=== PATIENT | female | born 1940 | race American Indian/Alaskan Native ===

== ENCOUNTER 2024-05-26 15:34 | Outpatient (CLI) | payer MEDICARE, MEDICAID ==
[~2024-05-26 15:34] MED LIST: ASPI-974 PO; ATOR20TA PO; CEPH-572 PO; FOLI1TAB27 PO; HYDR25TA4 PO; LANTUS SQ; LISI20TA28 PO; LOP25T PO
== END 2024-05-26 23:59 | disposition home or self-care (01) ==
LOC: MRI 15:34
PROVIDERS: ATTEND Nurse Practitioner
DX: I67.82 Cerebral ischemia (principal); J34.89 Other specified disorders of nose and nasal sinuses; F02.A4 Dementia in other diseases classified elsewhere, mild, with anxiety
CPT/HCPCS: 70551

== ENCOUNTER 2025-06-01 18:40 | Inpatient (IN) | payer MEDICARE, MEDICAID ==
[~2025-06-01] VITALS: Ht 165.1 cm; Wt 69.9 kg
--- NOTE | 2025-06-01 18:58 | Physician Documentation ---
History of Present Illness ~ Stated Complaint: TRANSFER Time Seen by MD: 18:45 Primary Medical Doctor: BRENDA RUSSELL HPI Patient presents to the emergency room as a transfer from [facility] for sepsis of unknown origin with white blood cell count in the 20s, a cute kidney injury, hypotension and hyperglycemia. Patient has been having nausea and vomiting for several days. She denies any pain. Rocephin and vancomycin along with 2 L of IV fluids were administered. Patient does have a pacemaker that has running through her skin in the left but no significant signs of infection associated with this on physical exam. Medication Reconciliation Allergies: Coded Allergies: Sulfa (Sulfonamide Antibiotics) (Unverified Allergy, Unknown, 08/13/15) Scheduled Folic Acid* (Folic Acid*), 1 TABLET PO DAILY, (Reported) Discontinued Medications Aspirin (Aspirin), 1 TAB PO DAILY, (Reported) Discontinued Reason: patient no longer taking Atorvastatin Calcium (Lipitor), 1 TABLET PO DAILY, (Reported) Discontinued Reason: patient no longer taking Cephalexin (Keflex), 1 CAP PO Q8H Discontinued Reason: patient no longer taking Hydrochlorothiazide (Hydrochlorothiazide), 1 TABLET PO DAILY, (Reported) Discontinued Reason: patient no longer taking Insulin Glargine,Hum.rec.anlog (Lantus Solostar), 47 UNIT SQ HS, (Reported) Discontinued Reason: patient no longer taking Lisinopril (Lisinopril), 1 TAB PO DAILY, (Reported) Discontinued Reason: completed med therapy Metoprolol Tartrate* (Lopressor tablet*), 1 TAB PO Q12H, (Reported) Discontinued Reason: patient no longer taking Past Medical History Past Medical History: Hypertension, Diabetes Past Surgical History: no surgical history Alcohol Use: None Drug Use: none Lives with: Alone Review of Systems ROS All review of systems negative except as per HPI Physical Exam Physical Exam General: Patient is awake, alert, oriented x4 in no acute distress Head: Normocephalic and atraumatic. Eyes: Conjunctival normal. EOMI. PERRL. ENT: Mucous membranes moist. Neck: Supple, trachea is midline. Chest: Clear to auscultation bilaterally without rales, rhonchi, or wheezes. There is no accessory muscle use or retractions. Cardiac: RRR without murmurs, gallops, or rubs. Abd: Soft, nondistended, nontender, with normoactive bowel sounds. No guarding, rebound, or rigidity. Progress Results/Orders Results/Orders Orders - CONRADO CHAVEZ MD Urinalysis, Cult If Indicated (06/01/25 19:00) Culture Blood (06/01/25 19:26) Page Hospitalist (06/01/25 20:22) Fill Out Med Reconciliation (06/01/25 20:22) Ct Chest Abdomen Pelvis (06/01/25 20:47) Completed Orders - CONRADO CHAVEZ MD Electrocardiogram (06/01/25 19:00) Cbc/Diff (06/01/25 19:00) MG (06/01/25 19:00) Procalcitonin (06/01/25 19:00) Normal Saline 1000ml (0.9% Sodium Chlori (06/01/25 19:05) CMP (06/01/25 19:26) Lacticsepsis (06/01/25 19:26) Ct Chest Abdomen Pelvis (06/01/25 20:47) Iohexol 300mg/Ml 100ml Inj. (Omnipaque-3 (06/01/25 20:56) Medications Received in ER Medications (Trade) Dose Ordered Sig/Nery Route PRN Reason Start Time Stop Time Status Last Admin Dose Admin Sodium Chloride 1,000 ml @ 1,000 mls/hr ONCE ONCE IV 06/01/25 19:05 06/01/25 20:04 DC 06/01/25 19:46 1,000 MLS/HR Vital Signs 06/01/25 06/01/25 06/01/25 06/01/25 18:55 19:13 19:49 20:14 Temp 97.9 Pulse 84 89 91 Resp 16 16 16 16 B/P (MAP) 89/49 107/53 (71) 114/47 (69) Pulse Ox 96 97 97 Laboratory Tests Test 06/01/25 19:24 06/01/25 20:06 Glucometer 361 H White Blood Count 25.4 *H Red Blood Count 4.08 L Hemoglobin 12.7 Hematocrit 36.6 Mean Corpuscular Volume 89.6 Mean Corpuscular Hemoglobin 31.1 H Mean Corpuscular Hemoglobin Concent 34.7 Red Cell Distribution Width 13.3 Platelet Count 207 Mean Platelet Volume 8.2 Neutrophils (%) (Auto) 93.3 H Lymphocytes (%) (Auto) 2.3 L Monocytes (%) (Auto) 3.9 Eosinophils (%) (Auto) 0 Basophils (%) (Auto) 0.5 Neutrophils # (Auto) 23.7 H Lymphocytes # (Auto) 0.6 L Monocytes # (Auto) 1.0 H Eosinophils # (Auto) 0.0 Basophils # (Auto) 0.1 CBC Comment Sodium Level 129 L Potassium Level 3.4 L Chloride Level 97 L Carbon Dioxide Level 20.3 L Anion Gap 12 Blood Urea Nitrogen 21 H Creatinine 1.23 H Estimated GFR/1.73 m2 42 BUN/Creatinine Ratio 17.1 Glucose Level 370 H Lactic Acid Level 3.7 H Calcium Level 8.0 L Magnesium Level 1.9 Total Bilirubin 0.6 Aspartate Amino Transf (AST/SGOT) 17 Alanine Aminotransferase (ALT/SGPT) 10 L Alkaline Phosphatase 78 Total Protein 5.9 L Albumin 2.6 L Globulin 3.3 Albumin/Globulin Ratio 0.8 L Procalcitonin 10.88 H Chemistry Comments Medical Decision Making Findings Patient presents to the emergency room sent from [facility] with hypotension on Levophed. Differentials include but are not limited to dehydration, severe sepsis, medication side effect therefore repeat labs ordered confirming diagnosis of sepsis. Patient is septic although we are unable to find the source of infection therefore CT scan of chest abdomen and pelvis ordered. Additional fluids ordered and patient has been weaned off of Levophed. IV antibiotics have already been administered. Departure Admitted to Inpatient Unit: yes, to hospitalist Impression: Primary Impression: Sepsis Additional Impressions: Hypotension Dehydration Condition: Guarded Referrals: NO PRIMARY CARE PROVIDER (PCP) Critical Care Note Total Time (mins): 45 Critical Care Note The very real possibility of a deterioration of this patient's condition required the highest level of my preparedness for sudden, emergent intervention. I provided critical care services, which included medication orders, frequent reevaluations of the patient's condition and response to treatment, ordering and reviewing test results, and discussing the case with various consultants. Excludes time spent performing separately billable procedures. The critical care time associated with the care of the patient was 45 minutes not counting procedures Signature Scribe Signature: No scribe Attestation: The note accurately reflects work and decisions made by me.Conrado Chavez MD 06/01/25 21:25 CONRADO CHAVEZ MD Jun 01, 2025 18:58
--- NOTE | 2025-06-01 19:15 | ELECTROCARDIOGRAPH REPORT ---
[facility] Test Date: 2025-06-01 Test Time: 19:14:10 Pat Name: ZOYA OLSEN Department: EMERGENCY ROOM Room: Gender: F Multifocal Lens Inspector: DONATO : 1940 Requested By: VIRGINIE DEWITT Order Number: [id number] Reading MD: Measurements Intervals Mico Rate: 82 P: 87 DC: 129 QRS: -49 QRSD: 152 T: 129 QT: 465 QTc: 543 Interpretive Statements Atrial-sensed ventricular-paced rhythm No further analysis attempted due to paced rhythm Please click the below link to view image of tracing.
[2025-06-01] MEDS: normal saline 1000ml 1,000 ML IV ONE (19:46)
[2025-06-01 20:27] LABS: MEAN PLATELET VOLUME 8.2 FL (7.4-10.4); RED CELL DISTRIBUTION WIDTH 13.3 % (11.5-14.5)
[2025-06-01 20:32] LABS: CREATININE 1.23 MG/DL (0.40-0.90); TOTAL CARBON DIOXIDE 20.3 MMOL/L (24-32); eCRCL 31 ML/MIN; eGFR 42 ML/MIN
[2025-06-01] MEDS ORDERED: iohexol 300mg/ml 100ml inj. ONE (20:56)
[2025-06-01] MEDS ORDERED: CARV6.252 PO (21:29)
[2025-06-01] MEDS ORDERED: LOSA100T58 PO (21:29)
[2025-06-01] MEDS ORDERED: ATOR10TA70 PO (21:29)
[2025-06-01] MEDS ORDERED: AMLO10TA PO (21:29)
[2025-06-01] MEDS ORDERED: GLIP5TAB23 PO (21:29)
[2025-06-01] MEDS ORDERED: DAPA10TA7 (21:29)
[2025-06-01] MEDS ORDERED: OXYC5CAP22 PO (21:29)
[2025-06-01] MEDS ORDERED: FURO-150 PO (21:29)
[2025-06-01] MEDS ORDERED: CHOL100046 PO (21:29)
[2025-06-01] MEDS ORDERED: ASPI-1265 PO (21:29)
[2025-06-01] MEDS ORDERED: METF-438 PO (21:29)
[2025-06-01] MEDS ORDERED: LEFL10TA20 PO (21:29)
--- NOTE | 2025-06-01 21:48 | RADIOLOGY REPORT ---
CLINICAL HISTORY: infection TECHNIQUE: CT of the chest, abdomen, and pelvis was performed with IV contrast. Coronal and sagittal reformatted images were performed for better depression of the anatomy. This exam was performed acco rding to our departmental dose optimization program. Up-to-date CT equipment and radiation dose reduc tion techniques are utilized as appropriate. CTDI 23.8 DLP 1329 COMPARISON: None FINDINGS: CHEST: The thoracic aorta is normal in course and caliber. There are moderate the main pulmonary artery is d ilated measuring 3.3 cm. Atherosclerotic calcifications. The heart is normal in size. There are midline denomy wires. There are extensive squaxin 3 vessel miranda nary artery calcifications. Aortic valvular calcifications are present there is a left chest wall pa cing device. ng device. No pericardial effusion is seen. No enlarged mediastinal, hilar, or axillary lymph node is present. The central airways are patent. There is no bronchiectasis. There is no suspicious pulmonary nodule or area of consolidation. There are mild atelectatic changes of both lung bases. There is no pleural effusion present. There is a small hiatal hernia. ABDOMEN/PELVIS: The spleen, gallbladder, kidneys, liver, uterus, and bladder are unremarkable. The moderate pancreatic parenchymal atrophy with no ductal dilatation. There is mild bilateral nonspe cific adrenal thickening. The common duct is borderline dilated, measuring 9 mm. The abdominal aorta is normal in course and caliber. There are moderate to advanced atherosclerotic c alcifications. There is no free intraperitoneal air or fluid. There is no enlarged abdominal or pelvic lymph node. There is no small or large bowel wall thickening or dilatation. There is gastric mural edema. Produce body wall edema. BONES: No acute osseous abnormality is evident. IMPRESSION: No acute CT abnormality in the chest. Gastritis. Borderline dilated 9 mm common duct. Please correlate with laboratory values and pursue further work up if warranted. Diffuse body wall edema.
[2025-06-01] MEDS ORDERED: magnesium Cl slow-release 64mg tablet PO PRN (21:55)
[2025-06-01] MEDS ORDERED: magnesium hydroxide 30ml (MOM) UD suspension PO PRN (21:55)
[2025-06-01] MEDS ORDERED: mag hydrox/Alum hydrox/simeth 30ml oral suspension PO PRN (21:55)
[2025-06-01] MEDS ORDERED: magnesium sulf-water 4G/100mL 100 ML IV PRN (21:55)
[2025-06-01] MEDS ORDERED: potassium Cl 40MEQ/1/2NS 520ml 520 ML IV PRN (21:55)
[2025-06-01] MEDS ORDERED: magnesium sulf-water 2g/50mL 50 ML IV PRN (21:55)
[2025-06-01] MEDS ORDERED: ondansetron/PF 4mg/2ml inj IV PRN (21:55)
[2025-06-01 22:33] LABS: CHOL/HDL RATIO 1.8 (0.00-4.99); LDL CHOLESTEROL 24 MG/DL (50-100)
[2025-06-01] MEDS ORDERED: DEXTROSE 15 GM of carb/4 tabs (each vial/BOTTLE has 4 tablets) PO PRN ×2 (23:00)
[2025-06-01] MEDS ORDERED: glucagon, human recombinant 1mg kit SUBCUT PRN (23:00)
[2025-06-01] MEDS ORDERED: dextrose 50%-water 50ml dispensing syringe IV PRN ×2 (23:00)
[2025-06-01] MEDS: ringers solution, lacted 1,000 ML IV ONE (23:41)
[2025-06-01 23:43] LABS: BANDS% (MANUAL) 33.0 % (0-10); EOSINOPHILS % (MANUAL) 2.0 % (0-6); LYMPHOCYTES % (MANUAL) 2.0 % (21-51); MONOCYTES % (MANUAL) 5.0 % (2-12); NEUTROPHILS % (MANUAL) 58.0 % (42-75); PLATELET ESTIMATE NORMAL
[2025-06-01] MEDS: insulin regular, human 10 units/0.1 ml syringe SQ ONE (23:43)
[2025-06-02] VITALS (8 sets, daily range): BP systolic 87–120; BP diastolic 41–59; PULSE 77–85; RESP 12–18; TEMP 97–97.6; O2SAT 92–98
[2025-06-02] MEDS: VANCOMYCIN/H2O 1.5g/300mL PB 300 ML IV ONE ×2 (00:39→00:46)
[2025-06-02] MEDS: piperacillin/tazo 3.375gm/50ml 50 ML IV SCH (00:39)
[2025-06-02 01:07] LABS: CREATININE 1.21 MG/DL (0.40-0.90); TOTAL CARBON DIOXIDE 18.9 MMOL/L (24-32); eCRCL 32 ML/MIN; eGFR 42 ML/MIN
--- NOTE | 2025-06-02 01:08 | HISTORY AND PHYSICAL-Residence ---
History & Physical Providers to CC Resident Creating Document: INDER BANKS, TRISTAN ~ History of Present Illness Primary Medical Doctor: BRENDA RUSSELL Reason for Admit\Complaint: generalised tiredness History of Present Illness This is a 85-year-old know case of diabetes presents to the emergency room as a transfer from [facility] for hypotension,When she came to [facility] his blood pressure was 89/49 and was on levofit drip, which was stopped here and she received 2L of fluid at [facility] ER, patient blood pressure went upto better however his blood pressure is currently on lower side around 90z/40z.Patient went to [facility] for chills and nausea. Patient has very very hard time in hearing i could not take her history further. Allergies: Coded Allergies: Sulfa (Sulfonamide Antibiotics) (Unverified Allergy, Unknown, 08/13/15) Home Medications Home Medications Active Reported Oxycodone HCl 5 Mg Capsule 1 Cap PO QID PRN PRN 30 Days Metformin HCl 1,000 Mg Tablet 1 Tab PO Q12H 30 Days Losartan Potassium 100 Mg Tablet 1 Tab PO DAILY 30 Days Leflunomide 10 Mg Tablet 1 Tab PO DAILY 30 Days Glipizide 5 Mg Tablet 1 Tab PO DAILY 30 Days Lasix (Furosemide) 20 Mg Tablet 1 Tab PO DAILY 30 Days Dapagliflozin (Dapagliflozin Propanediol) 10 Mg Tablet Vitamin D3 (Cholecalciferol (Vitamin D3)) 25 Mcg (1000 Unit) Capsule 1 Cap PO DAILY 30 Days Carvedilol 6.25 Mg Tablet 1 Tab PO Q12H 30 Days Atorvastatin Calcium 10 Mg Tablet 1 Tab PO DAILY 30 Days Aspirin 81 Mg Tab.chew 1 Tab PO DAILY 30 Days Amlodipine Besylate 10 Mg Tablet 1 Tablet PO DAILY Folic Acid* (Folic Acid) 1 Mg Tablet 1 Tablet PO DAILY Past Medical History Past Medical History Diabetes Mellitus Patient had very hard time in hearing so i could not take her social history. Past Surgical History Surgical History Comment Patient had very hard time in hearing so i could not take her social history. Past Social History Social History Comment Patient had very hard time in hearing so i could not take her social history. Drug Use: None Lives with: Alone ROS Constitutional: Reports: chills Exam Vitals: Vital Signs Date Time Temp Pulse Resp B/P (MAP) Pulse Ox O2 Delivery O2 Flow Rate FiO2 06/01/25 23:47 80 16 121/59 (79) 96 8/21/25 18:55 97.9 General: General: awake, alert oriented to place, time, and person HEENT: No pallor present, no icterus, moist mucous membranes, Diffculty in hearing Neck: No masses and tenderness Resp: Unlabored. Lungs clear to auscultation bilaterally. Chest: Normal expansion. Cardiovascular: Regular Rate and rhythm, normal S1 and S2 without murmur, rub or gallop Abdomen: Soft and non tender in epigastrium, no organomegaly, no guarding and rigidity, bowel sounds present Neuro: No focal weakness in the upper and lower limb muscles, power of the muscles 5/5 bilateral upper and lower extremities, normal reflexes bilaterally. Cranial nerves intact Extremities: No cyanosis,clubbing or edema Skin: Warm and Dry. No lesions Psych: Normal affect Diagnostic Data Last Recorded Lab Results: 06/01/25200506/01/252005 Advance Care Planning Advanced Care plannin - 30 Minutes (I spent 17 minutes in discussing various resuscitative measures with patient and he choose to be full code.) Additional Plan This is a 85-year-old know case of diabetes presents to the emergency room as a transfer from [facility] for hypotension,When she came to [facility] his blood pressure was 89/49 and was on levofit drip, which was stopped here and she received 2L of fluid at [facility] ER, patient blood pressure went upto better however his blood pressure is currently on lower side around 90z/40z.Patient went to [facility] for chills and nausea. Patient has very very hard time in hearing i could not take her history further. Septic Shock/Sepsis/Infection of Unknown Origin SIRS Criteria met Wbc: 25.4 Lactic acid 2.5 BP: 96/46, MAP 63 Patient transfered from [facility] on Levophed ER Discontinued Levophed started on fluids. Started on vancomycin and zoysn Received around 5L of Fluids Follow up with Urine Culture, Blood Culture Ct scan abd pelvis: Does not show signs of acute infection Consult ICU if patient does not maintain BP. Type 2 Diabetes Mellitus Hb1Ac: 11.6 Glucose: 290 Started hyperglycemia/hypoglycemia protocol, lantus 10, lispro 8 units and high dose supplemental She also received one single dose of lantus 10 units. Held oral home medications for diabetes Follow up with blood gluocse and Urine Ketone Monitor signs for DKA Hyponatremia NA is 129 Urine lytes ordered to find out etiology for hyponatremia Follow up with urine and serum osmolality Monitor for signs and symptoms of hyponatremia Hypokalemia K is 3.0 Placed on K protocol. Acute Kidney Injury Metabolic acidosis Creatinine 1.21 Follow up with urine lytes Patient Received fluids Dvt Prophylaxis: Heparin Patient seen and evaluated with the resident using HIPPA compliant AV Device Sepsis but responded to fluid resuscitation, source possible from pacemaker site Agree with plans as outlined above, If MAP becomes less than 65 persistently then transfer to ICU for pressor support ID and cardiology consult Susy Pavon MD Date of Service: Jun 02, 2025 Billing Provider: SUSY PAVON MD, SANJAY, RES Jun 02, 2025 01:08 SUSY PAVON MD Jun 02, 2025 03:58
[2025-06-02] MEDS: PERFLUTREN PROTEIN-A MICROSPHR (Optison) 0.22 MG/ML 3ML VIAL IV ONE (02:18)
[2025-06-02] MEDS: potassium Cl 20 mEq SR tablet PO PRN ×2 (02:22→12:29)
[2025-06-02 02:26] LABS: LEUKOCYTE ESTERASE ,URINE NEGATIVE (Neg); NITRITES, URINE NEGATIVE (Neg); OCCULT BLOOD,URINE NEGATIVE (Neg)
[2025-06-02 02:27] LABS: UA COLLECTION TYPE CLN CATCH MIDSTREAM
[2025-06-02 02:39] LABS: SQUAMOUS EPITHELIAL CELL,UR MODERATE /LPF (FEW)
[2025-06-02 02:46] LABS: CREATININE,URINE RANDOM 56.0 MG/DL; TOTAL PROTEIN,URINE RANDOM 30.0 MG/DL; UA UREA RANDOM 434.0 MG/DL
[2025-06-02 02:47] LABS: URINE AMPHETAMINE SCREEN NEGATIVE (Neg); URINE BARBITUATE SCREEN NEGATIVE (Neg); URINE BENZODIAZEPINES SCREEN NEGATIVE (Neg); URINE CANNABINOID SCREEN NEGATIVE (Neg); URINE COCAINE SCREEN NEGATIVE (Neg); URINE METHADONE SCREEN NEGATIVE (Neg); URINE OPIATE SCREEN NEGATIVE (Neg); URINE PHENCYCLIDINE SCREEN NEGATIVE (Neg)
[2025-06-02] MEDS: INSULIN LISPRO 100 UNIT/ML INSULN.PEN MULTI-DOSE SQ SCH ×2 (07:00→09:00)
[2025-06-02 07:43] LABS: MEAN PLATELET VOLUME 8.8 FL (7.4-10.4); RED CELL DISTRIBUTION WIDTH 13.3 % (11.5-14.5)
[2025-06-02] MEDS: docusate sod 100mg capsule PO SCH (07:54)
[2025-06-02] MEDS: sodium bicarbonate 1meq/ml inj 150 ML in sodium chloride 0.45% 1,000 ML IV SCH (07:55)
[2025-06-02 07:56] LABS: APTT 33 SECONDS (22-32); INR 1.2 INR
[2025-06-02] MEDS: heparin, porcine 5000 units/ml vial SQ SCH (07:57)
[2025-06-02 08:00] LABS: CREATININE 1.15 MG/DL (0.40-0.90); TOTAL CARBON DIOXIDE 19.8 MMOL/L (24-32); eCRCL 33 ML/MIN; eGFR 45 ML/MIN
[2025-06-02] MEDS: K and/or MAG REPLACEMENT MC SCH (08:00)
[2025-06-02 08:11] LABS: CREATININE 1.15 MG/DL (0.40-0.90); PHOSPHORUS 2.2 MG/DL (2.3-4.5); TOTAL CARBON DIOXIDE 21.3 MMOL/L (24-32); eCRCL 33 ML/MIN; eGFR 45 ML/MIN
[2025-06-02] MEDS: normal saline 1000ml 1,000 ML IV SCH (08:54)
[2025-06-02] MEDS: normal saline 1000ml 1,000 ML IVB ONE (10:11)
[2025-06-02] MEDS: sodium bicarbonate (8.4%) inj. 100 MEQ in dextrose 5%-water 1,000 ML IV SCH (11:19)
--- NOTE | 2025-06-02 19:43 | CARDIOLOGY REPORT ---
APPROVED REPORT EXAM: Comprehensive 2D, Doppler, and color-flow Echocardiogram. Patient Location: 301 Blood Pressure: 95/42 mmHg Heart Rate: 99 bpm Rhythm: NSR Indications CHF Pacemaker Diabetes Photoengraving Proofer is Avelina Morris MD Previous echo 08/14/15 [facility] 40% EF ; m MR TR 2D Dimensions LA Diam3.6 cm IVSd 1.0 (0.7-1.1cm) LVDd 4.4 cm PWd 1.0 (0.7-1.1cm) IVSs 1.7 (0.8-1.2cm) LVDs 3.1 (2.5-4.0cm) Aortic Root(2D) 2.9 cm PWs 1.4 (0.8-1.2cm) LVOT Diameter 1.92 (1.8-2.4cm) LVEF(%) 65.0 (>50%) Ao Asc Diam.2.56 cmIVC 18.44 mm FS (%) 29.3 % SV 49.3 ml CO 3.7 L/min M-Mode Dimensions MV EPSS 0.5 (<0.5cm) Aortic Valve AoV Peak Miguel. 171.1 cm/s AoV VTI 32.9 cm AO Peak GR. 11.7 mmHg AO Mean GR. 7 mmHg LVOT VTI 25.17 cm LVOT Peak Miguel. 111.3 cm/s MADAY(VTI)/BSA 2.22 cm2/m2 MADAY (VTI) 2.22 cm2 Mitral Valve MV E Velocity 76.8 cm/s MV Peak Gr. 3 mmHg MV DECEL TIME 248 ms MV A Velocity 70.8 cm/s MV PHT 56 ms E/A Ratio 1.1 MVA (PHT) 3.93 cm2 MV VMax87.4 cm/s TDI Medial E' P. V 11.92 cm/s E/Medial E' 6.4 Tricuspid Valve TR P. Velocity 285 cm/s RAP ESTIMATE 10 mmHg TR Peak Gr. 32 mmHg RVSP 42 mmHg Pulmonary Vein S1 Velocity 53.6 cm/s D2 Velocity 46.0 cm/s PVa Kvabdpey99.6 cm/s PVa Lrubgges55 msec LEFT VENTRICLE Normal LV size and wall thickness. Overall systolic function is hyperdynamic. LVEF is 75%. RIGHT VENTRICLE RV appears moderately dilated with normal contractility. Pacemaker wire in right heart. RVSP is estim ated at 42 mmHG. ATRIA The left atrium size is normal. AORTIC VALVE Trileaflet AV appears sclerotic without stenosis. No insufficiency. MITRAL VALVE MV is thickened with mild annular calcification and no stenosis. Trace mitral regurgitation. TRICUSPID VALVE The tricuspid valve is normal in structure. Moderate tricuspid regurgitation. PULMONIC VALVE The pulmonary valve is normal in structure. Trace pulmonic regurgitation. GREAT VESSELS The aortic root is normal in size. The ascending aorta is normal in size. The IVC is normal in size a nd collapses >50% with inspiration. PERICARDIUM There is no pericardial effusion. Other Information Study Quality: Adequate Conclusion Normal LV size and wall thickness. Overall systolic function is hyperdynamic. LVEF is 75%. RV appears moderately dilated with normal contractility. Pacemaker wire in right heart. RVSP is estim ated at 42 mmHG. The left atrium size is normal. Trileaflet AV appears sclerotic without stenosis. No insufficiency. MV is thickened with mild annular calcification and no stenosis. Trace mitral regurgitation. The tricuspid valve is normal in structure. Moderate tricuspid regurgitation. The pulmonary valve is normal in structure. Trace pulmonic regurgitation. There is no pericardial effusion.
[2025-06-02] MEDS: insulin glargine (Lantus) pen - multi-dose SQ SCH (20:57)
--- NOTE | 2025-06-02 21:21 | PROGRESS NOTE ---
Daily Progress Note Providers to CC ~ Antibiotic Timeout Antibiotic Ordered?: Yes Subjective The patient is significantly hard of hearing however was able to converse with the patient she has no acute complaints even though she has been very hypotensive this morning and a has a give the patient two separate 1 L boluses of normal saline. I discussed the case with who had placed the AICD in 2016 who has a agreed to consult on the patient and informed me he will contact Dr. Melendez cement mixer and infectious disease physician Dr. Jose mendoza Objective Vital Signs Date Time Temp Pulse Resp B/P (MAP) Pulse Ox O2 Delivery O2 Flow Rate FiO2 06/02/25 15:00 97.5 79 14 118/46 (70) 94 Room Air 06/02/25 02:00 0 21 Result Diagram: 06/02/25 0710 06/02/25 0710 Gen. No acute distress alert and oriented 4 Skin dressing is in place left chest wall Lungs clear to ascultation bilaterally, no wheezes rales or rhonchi appreciated Heart normal sinus rhythm no murmurs rubs or clicks noted Abdomen soft nontender bowel sounds are normoactive Lower extremities no clubbing cyanosis, nor edema appreciated bilaterally Coagulation Studies Laboratory Tests Test 06/02/25 07:10 Prothrombin Time 11.9 SECONDS (9.0-12.0) INR International Normalized Ratio 1.2 INR Activated Partial Thromboplast Time 33 SECONDS (22-32) H Coagulation Comments Problem\Assessment\Plan # septic shock/sepsis Wbc: 25.4 Lactic acid 2.5 BP: 96/46, MAP 63 Patient transfered from [facility] on Levophed ER Discontinued Levophed started on fluids. Started on vancomycin and zoysn Received around 5L of Fluids Follow up with Urine Culture, Blood Culture Ct scan abd pelvis: Does not show signs of acute infection 06/02 drainage from the pacemaker site initial culture from [facility] demonstrates Gram-positive cocci as well as the initial blood cultures I discussed the case with who had placed the AICD in 2016 who has a agreed to consult on the patient and informed me he will contact Dr. Melendez cement mixer and infectious disease physician Dr. Jose mendoza The patient required 2 L of IV fluid normal saline boluses Continue IV vancomycin and Zosyn # type 2 diabetes mellitus and a hyper and hypoglycemic protocol # metabolic acidosis Bicarb drip # hypokalemia On potassium replacement protocol # hyponatremia Improving continue monitor daily CMP # kidney disease-eval for LINCOLN Daily CMP Currently does not meet the criteria for LINCOLN # DVT prophylaxis SQ heparin I spent 40 minutes of critical care time with the patient on 06/02/2025 Date of Service: Jun 02, 2025 Billing Provider: LUCY HERNANDEZ DO Common Visit Codes: [id number] CARE 30-74 MIN LUCY HERNANDEZ DO Jun 02, 2025 21:21
[2025-06-02] MEDS ORDERED: VANCOMYCIN 1GM 200ML H20 (PEG) 200 ML IV SCH (23:00)
[2025-06-02] MEDS ORDERED: vancomycin/NS 1 GM ADD-VANTAGE 250 ML IV SCH (23:00)
[2025-06-03] VITALS (9 sets, daily range): BP systolic 100–160; BP diastolic 59–71; PULSE 74–85; RESP 13–22; TEMP 97–97.9; O2SAT 96–99
[2025-06-03] MEDS: vancomycin inj. 750 MG in normal saline 250ml IV soln 250 ML IV SCH (01:23)
[2025-06-03 08:03] LABS: MEAN PLATELET VOLUME 8.5 FL (7.4-10.4); RED CELL DISTRIBUTION WIDTH 13.3 % (11.5-14.5)
[2025-06-03 08:19] LABS: APTT 36 SECONDS (22-32); INR 1.0 INR
[2025-06-03 08:53] LABS: CREATININE 0.94 MG/DL (0.40-0.90); PHOSPHORUS 1.4 MG/DL (2.3-4.5); TOTAL CARBON DIOXIDE 22.2 MMOL/L (24-32); eCRCL 41 ML/MIN; eGFR 57 ML/MIN
--- NOTE | 2025-06-03 12:21 | CONSULTATION ---
DATE OF CONSULTATION: 06/03/2025 DICTATING PHYSICIAN: Jose Liao MD REASON FOR CONSULTATION: I am seeing the patient at the request of Dr. Farias for evaluation of a pacemaker pocket infection with bacteremia. HISTORY OF PRESENT ILLNESS: The patient is an 85-year-old female who lives up in [place] and apparently presented to [facility] with sepsis. She had an elevated white blood cell count along with hypotension. She had been experiencing nausea and vomiting. She was resuscitated with IV fluids and she did have a mild acute kidney injury that appears to be improving. Blood cultures have since turned positive for gram-positive cocci in clusters. She has been broadly covered with vancomycin and Zosyn. It quickly became apparent that she has an exposed defibrillator at her left chest. She is unclear how long that wound has been present, but the device was clearly visible. She states that she lives on her own. She does not have any significant pain anywhere. Her breathing is stable. She is hard of hearing, but she does not seem to be confused. Dr. Farias was consulted for removal of the device and I believe he is consulting with Dr. Melendez. She has not had any focal neurological symptoms. No significant fever. PAST MEDICAL HISTORY: * Diabetes mellitus type 2 that appears to be uncontrolled with a hemoglobin A1c of 11.6%. * Hypertension. * Dyslipidemia. * Rheumatoid arthritis. * Hearing loss. * Suspected coronary artery disease. PAST SURGICAL HISTORY: * She does have a biventricular AICD that was put in back in [address] Farias here at [facility]. She states that she had cardiac surgery over at [facility] several years ago and I will try to get more details. * Appendectomy. * Carpal tunnel surgery. ALLERGIES: SULFA. MEDICATIONS: * Vancomycin. * Zosyn. * Insulin glargine. * Humalog. * Subcutaneous heparin. * Folate. * Atorvastatin. * Aspirin. * Colace. FAMILY HISTORY: Noncontributory. SOCIAL HISTORY: She states that she lives alone in [place]. She is a member of the [employer]. She does not drink or smoke. PHYSICAL EXAMINATION: VITAL SIGNS: She is afebrile with stable vital signs on room air. GENERAL: She is a very pleasant, elderly female sitting up in bed, eating her breakfast. HEENT: Sclerae anicteric. Mouth is clear. NECK: Supple. LUNGS: Clear to auscultation bilaterally. HEART: Regular rate and rhythm. CHEST: She does have a small open wound at the left anterior chest and her AICD is easily visualized. She does not have significant surrounding erythema. ABDOMEN: Soft, nontender, and nondistended. EXTREMITIES: No edema. NEUROLOGICALLY: She is moving all four extremities. LABORATORY DATA AND IMAGING: Her white blood cell count is 13,000, down from 25,000; hemoglobin 11.6; platelets 191,000. Creatinine 0.94. Blood cultures are positive for gram-positive cocci in clusters. MRSA nasal screen is positive. She did have a transthoracic echo that shows a normal ejection fraction. Aortic valve was sclerotic without any insufficiency. Mitral valve is thickened with mild annular calcification, but no stenosis or significant regurgitation. Tricuspid valve is normal with moderate regurgitation. There was no clear evidence of endocarditis. CT scan of the chest, abdomen, and pelvis was performed that was largely unremarkable. MRI of the brain was also unremarkable. IMPRESSION: * Staphylococcal sepsis, suspicious for methicillin-resistant Staphylococcus aureus given her positive screen. She is clinically stable at this time after presenting with sepsis at an outside hospital. Source appears to be her automatic implantable cardioverter-defibrillator pocket. It is unclear how long that wound has been present. She will likely move forward with treatment for presumed endocarditis given the circumstances. 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 I believe Dr. Farias is working with Dr. Melendez to plan removal of this device. * Diabetes mellitus type 2 that is uncontrolled. * Rheumatoid arthritis, possibly on immunosuppressive therapy. Looking at past notes, she has been on a variety of therapies in the past including infliximab and methotrexate. Her current medication list suggests that she is on leflunomide. Treatment for this condition will need to be clarified. PLAN: She will continue with vancomycin. Zosyn will be discontinued. I am going to repeat her blood cultures. I will await the plan from Dr. Farias and Dr. Melendez. We will sort out a duration of therapy once her device has been removed and her bloodstream has been cleared. Further adjustments will be based on susceptibilities. At the present time, she does not demonstrate evidence of metastatic infection. I will continue to follow her closely, and I thank you for allowing me to participate in her care. 75 minutes time spent [id number], review of medical record including labs/cultures/imaging, orders and documentation. Jose Liao MD TID: [id number] RECEIPT: [id number] DOMINICK/JACINTO MORENO
--- NOTE | 2025-06-03 21:55 | PROGRESS NOTE ---
Daily Progress Note Providers to CC ~ Antibiotic Timeout Antibiotic Ordered?: Yes Subjective The patient states that she feels well has no acute complaints, the patient is white blood cell count is downtrending and her blood pressure stabilized I did speak with Dr. Melendez for lead extraction who will evaluate the patient- the patient's AICD was interrogated and the patient is not pacemaker dependent. Dr. Jose mendoza infectious disease evaluated the patient today discontinue Zosyn Objective Vital Signs Date Time Temp Pulse Resp B/P (MAP) Pulse Ox O2 Delivery O2 Flow Rate FiO2 06/03/25 18:30 83 06/03/25 15:00 97.1 20 130/60 (83) 98 Room Air 06/02/25 02:00 0 21 Result Diagram: 06/03/25 0740 06/03/25 0740 Gen. No acute distress alert and oriented 4 Skin dressing is in place left chest wall Lungs clear to ascultation bilaterally, no wheezes rales or rhonchi appreciated Heart normal sinus rhythm no murmurs rubs or clicks noted Abdomen soft nontender bowel sounds are normoactive Lower extremities no clubbing cyanosis, nor edema appreciated bilaterally Coagulation Studies Laboratory Tests Test 06/03/25 07:40 Prothrombin Time 10.1 SECONDS (9.0-12.0) INR International Normalized Ratio 1.0 INR Activated Partial Thromboplast Time 36 SECONDS (22-32) H Coagulation Comments Problem\Assessment\Plan # septic shock/sepsis Wbc: 25.4 Lactic acid 2.5 BP: 96/46, MAP 63 Patient transfered from [facility] on Levophed ER Discontinued Levophed started on fluids. Started on vancomycin and zoysn Received around 5L of Fluids Follow up with Urine Culture, Blood Culture Ct scan abd pelvis: Does not show signs of acute infection 06/02 drainage from the pacemaker site initial culture from [facility] demonstrates Gram-positive cocci as well as the initial blood cultures I discussed the case with who had placed the AICD in 2017 who has a agreed to consult on the patient and informed me he will contact Dr. Melendez geographic information systems engineer and infectious disease physician Dr. Jose mendoza The patient required 2 L of IV fluid normal saline boluses Continue IV vancomycin and Zosyn 06/03 Dr. Jose mendoza a evaluated the patient and discontinue Zosyn, Dr. Melendez geographic information systems engineer has been consulted and will evaluate the patient for lead extraction # type 2 diabetes mellitus and a hyper and hypoglycemic protocol # metabolic acidosis Bicarb drip 06/03 improving # hypokalemia On potassium replacement protocol # hyponatremia Improving continue monitor daily CMP # kidney disease-eval for LINCOLN Daily CMP Currently does not meet the criteria for LINCOLN # DVT prophylaxis SQ heparin I spent 40 minutes of critical care time with the patient on 06/02/2025 Date of Service: Jun 03, 2025 Billing Provider: LCUY HERNANDEZ DO Common Visit Codes: [id number] INP/OBS CARE(HIGH) LUCY HERNANDEZ DO Jun 03, 2025 21:55
[2025-06-03] MEDS: sodium phosphate inj. 15 MMOL in normal saline 250ml IV soln 250 ML IV ONE (22:34)
[2025-06-04 02:00] VITALS: BP 145/65; PULSE 86; RESP 16; TEMP 97.9; O2SAT 97
[2025-06-04] MEDS: magnesium sulf-water 2g/50mL 50 ML IV ONE (05:31)
[2025-06-04 06:00] VITALS: BP 133/68; PULSE 80; RESP 21; TEMP 98.6; O2SAT 96
[2025-06-04 06:44] LABS: APTT 37 SECONDS (22-32); INR 1.0 INR
[2025-06-04 07:05] LABS: CREATININE 0.80 MG/DL (0.40-0.90); PHOSPHORUS 1.7 MG/DL (2.3-4.5); TOTAL CARBON DIOXIDE 25.7 MMOL/L (24-32); eCRCL 48 ML/MIN; eGFR 69 ML/MIN
[2025-06-04 07:30] LABS: MEAN PLATELET VOLUME 8.7 FL (7.4-10.4); RED CELL DISTRIBUTION WIDTH 13.3 % (11.5-14.5)
--- NOTE | 2025-06-04 10:28 | PROGRESS NOTE ---
Progress Note Cardiology Providers to CC ~ Subjective Subjective Does not hear. Left hearing aid at home. Objective Result Diagram: 06/04/25 0550 06/04/25 0550 Objective Problems at pulse generator site noted Coagulation Studies Laboratory Tests Test 06/04/25 05:50 Prothrombin Time 10.4 SECONDS (9.0-12.0) INR International Normalized Ratio 1.0 INR Activated Partial Thromboplast Time 37 SECONDS (22-32) H Coagulation Comments Problem\Assessment\Plan Additional Plan Problem: ICD packet infection with erosion secondary to seeding from stapgh aureus. Sepsis is defervesced and pt stable on vancomycin. I cannot do an extraction until at which time MD ANGELITO, CT surgeon is back on site. I do not have confidence in any of the other surgeons for adequate back-up. The patient could go home on outpatient [facility] or she could be transferred to [facility]. I am very willing to do the extraction but only with safe, expedient CT support. If she goes home and comes back, SHE MUST HAVE HER HEARING AID. I will see her as an oupatient if she stays locally but SHE MUST BRING HER HEARING AID. ANGY ROMANO DO Jun 04, 2025 10:28
[2025-06-04 11:00] VITALS: BP 111/61; PULSE 92; RESP 22; TEMP 98.1; O2SAT 95
[2025-06-04 15:00] VITALS: BP 134/67; PULSE 76; RESP 26; TEMP 97; O2SAT 96
[2025-06-04 18:00] VITALS: BP 128/57; PULSE 85; RESP 19; TEMP 97.3; O2SAT 98
--- NOTE | 2025-06-04 18:34 | PROGRESS NOTE ---
Daily Progress Note Providers to CC ~ Antibiotic Timeout Antibiotic Ordered?: Yes Subjective The patient is resting comfortably in bed and a white blood cell count is downtrending however her blood cultures are positive for MRSA and the repeat blood cultures are positive on the preliminary report. The patient was evaluated by Dr. MELENDEZ scrap bunch maker. Objective Vital Signs Date Time Temp Pulse Resp B/P (MAP) Pulse Ox O2 Delivery O2 Flow Rate FiO2 06/04/25 15:00 97.0 76 26 134/67 (89) 96 Room Air 06/03/25 19:30 0 21 Result Diagram: 06/04/25 0550 06/04/25 0550 Gen. No acute distress alert and oriented 4 Skin dressing is in place left chest wall Lungs clear to ascultation bilaterally, no wheezes rales or rhonchi appreciated Heart normal sinus rhythm no murmurs rubs or clicks noted Abdomen soft nontender bowel sounds are normoactive Lower extremities no clubbing cyanosis, nor edema appreciated bilaterally Coagulation Studies Laboratory Tests Test 06/04/25 05:50 Prothrombin Time 10.4 SECONDS (9.0-12.0) INR International Normalized Ratio 1.0 INR Activated Partial Thromboplast Time 37 SECONDS (22-32) H Coagulation Comments Problem\Assessment\Plan This is an 85-year-old female who was transferred from [facility] with drainage from her AICD site and subsequently has positive MRSA blood cultures the patient has a exposed AICD wire. The patient was evaluated by Dr. Melendez scrap bunch maker today who is planning a lead extraction with the assistance of Dr. Reynoso Cardiothoracic surgeon however we will be taking the patient to the OR on June 21 and did recommend that the patient could be discharge in the interim on vancomycin with home health and come back for the procedure on June 21 # septic shock/sepsis Wbc: 25.4 Lactic acid 2.5 BP: 96/46, MAP 63 Patient transfered from [facility] on Levophed ER Discontinued Levophed started on fluids. Started on vancomycin and zoysn Received around 5L of Fluids Follow up with Urine Culture, Blood Culture Ct scan abd pelvis: Does not show signs of acute infection 06/02 drainage from the pacemaker site initial culture from [facility] demonstrates Gram-positive cocci as well as the initial blood cultures I discussed the case with who had placed the AICD in 2016 who has a agreed to consult on the patient and informed me he will contact Dr. Melendez scrap bunch maker and infectious disease physician Dr. Jose mendoza The patient required 2 L of IV fluid normal saline boluses Continue IV vancomycin and Zosyn 06/03 Dr. Jose mendoza a evaluated the patient and discontinue Zosyn, Dr. Melendez scrap bunch maker has been consulted and will evaluate the patient for lead extraction 06/04 The patient was evaluated by Dr. Melendez scrap bunch maker today who is planning a lead extraction with the assistance of Dr. Reynoso Cardiothoracic surgeon however we will be taking the patient to the OR on June 21 and did recommend that the patient could be discharge in the interim on vancomycin with home health and come back for the procedure on June 21. Blood cultures grew out MRSA- repeat blood cultures are positive. Will order another set of repeat blood cultures # type 2 diabetes mellitus and a hyper and hypoglycemic protocol # metabolic acidosis 06/04 resolved DC bicarb drip # hypokalemia On potassium replacement protocol # hyponatremia continue monitor daily CMP # LINCOLN possibly secondary to renal tubular stasis Resolved Daily CMP Currently does not meet the criteria for LINCOLN # DVT prophylaxis SQ heparin I spent 40 minutes of critical care time with the patient on 06/02/2025 Date of Service: Jun 04, 2025 Billing Provider: LUCY HERNANDEZ DO Common Visit Codes: [id number] INP/OBS CARE(HIGH) LUCY HERNANDEZ DO Jun 04, 2025 18:34
[2025-06-04 22:00] VITALS: BP 145/66; PULSE 81; RESP 25; TEMP 97.3; O2SAT 98
[2025-06-05] VITALS (8 sets, daily range): BP systolic 115–152; BP diastolic 51–69; PULSE 84–97; RESP 12–24; TEMP 97–98.6; O2SAT 95–98
[2025-06-05] MEDS: VANCOMYCIN LEVEL IV ONE (00:59)
[2025-06-05 01:01] LABS: CREATININE 0.53 MG/DL (0.40-0.90); TOTAL CARBON DIOXIDE 24.0 MMOL/L (24-32); eCRCL 72 ML/MIN; eGFR > 90 ML/MIN
[2025-06-05 01:02] LABS: PHOSPHORUS 1.7 MG/DL (2.3-4.5)
[2025-06-05 07:02] LABS: MEAN PLATELET VOLUME 8.2 FL (7.4-10.4); RED CELL DISTRIBUTION WIDTH 13.2 % (11.5-14.5)
[2025-06-05 07:10] LABS: INR 1.1 INR
[2025-06-05 08:58] LABS: LYMPHOCYTES % (MANUAL) 11.0 % (21-51); MONOCYTES % (MANUAL) 13.0 % (2-12); NEUTROPHILS % (MANUAL) 76.0 % (42-75)
[2025-06-05 08:59] LABS: PLATELET ESTIMATE NORMAL
--- NOTE | 2025-06-05 14:37 | PROGRESS NOTE ---
Daily Progress Note Providers to CC ~ Antibiotic Timeout Antibiotic Ordered?: Yes Subjective Chief complaint none Review of systems negative for all 10 systems reviewed Objective Vital Signs Date Time Temp Pulse Resp B/P (MAP) Pulse Ox O2 Delivery O2 Flow Rate FiO2 06/05/25 11:00 97.4 85 15 115/67 (83) 97 Room Air 06/03/25 19:30 0 21 Result Diagram: 06/05/25 0633 06/05/25 0030 Patient is alert and oriented x3 no acute distress CVS first and second heart sounds are regular rate rhythm no murmurs gallops or rubs bandaging over left chest wall which I did not remove Respiratory system is clear to auscultate bilaterally Abdomen is soft bowel sounds are positive nontender nondistended no hepatosplenomegaly Extremities no clubbing cyanosis or edema Coagulation Studies Laboratory Tests Test 06/04/25 05:50 06/05/25 06:33 Activated Partial Thromboplast Time 37 SECONDS (22-32) H Prothrombin Time 10.9 SECONDS (9.0-12.0) INR International Normalized Ratio 1.1 INR Coagulation Comments Problem\Assessment\Plan This is an 85-year-old female who was transferred from [facility] with drainage from her AICD site and subsequently has positive MRSA blood cultures the patient has a exposed AICD wire. The patient was evaluated by Dr. Day integration technician today who is planning a lead extraction with the assistance of Dr. Reynoso Cardiothoracic surgeon however we will be taking the patient to the OR on June 21 and did recommend that the patient could be discharge in the interim on vancomycin with home health and come back for the procedure on June 21 # septic shock/sepsis Continue IV vancomycin 06/03 Dr. Jose velasquez evaluated the patient and discontinue Zosyn, Dr. Day integration technician has been consulted and will evaluate the patient for lead extraction 06/04 The patient was evaluated by Dr. Day integration technician today who is planning a lead extraction with the assistance of Dr. Reynoso Cardiothoracic surgeon however we will be taking the patient to the OR on June 21 and did recommend that the patient could be discharge in the interim on vancomycin with home health and come back for the procedure on June 21. Blood cultures grew out MRSA- repeat blood cultures are positive from 06/03/2025. continue to be positive hence PICC line can not be placed yet blood cultures from today are pending. Once we started getting negative blood cultures back we will plan for a PICC line and plan for a discharge to a long-term facility. # type 2 diabetes mellitus and a hyper and hypoglycemic protocol # metabolic acidosis 06/04 resolved DC bicarb drip # hypokalemia On potassium replacement protocol # hyponatremia continue monitor daily CMP # LINCOLN possibly secondary to renal tubular stasis Resolved Daily CMP Currently does not meet the criteria for LINCOLN # DVT prophylaxis SQ heparin I spent 40 minutes of critical care time with the patient on 06/02/2025 Date of Service: Jun 05, 2025 Billing Provider: KELLY HANLEY MD Common Visit Codes: [id number] INP/OBS CARE(HIGH) KELLY HANLEY MD Jun 05, 2025 14:37
--- NOTE | 2025-06-05 18:30 | PROGRESS NOTE- Residence ---
Progress Note - Resident Providers to CC Resident Creating Document: PANKAJ CARNEY RES ~ Antibiotic Timeout Antibiotic Ordered?: Yes Subjective And seen and examined at the bedside denied any chest pain shortness of breaths or fever or chills Objective Vital Signs Date Time Temp Pulse Resp B/P (MAP) Pulse Ox O2 Delivery O2 Flow Rate FiO2 06/05/25 15:00 98.0 85 21 124/65 (84) 98 Room Air 06/03/25 19:30 0 21 Result Diagram: 06/05/25 0633 06/05/25 0030 General: Awake and Alert, no acute distress. HEENT: Conjunctiva pink, Sclera clear, Mucus Membranes moist. Chest: Pacemaker his exposed on the left side of the chest, covered by dressing Neck: Supple without masses and tenderness. Resp: Lungs clear to auscultation bilaterally. Heart: Regular Rate and rhythm, normal S1 and S2 without murmur Abdomen: Soft and non tender no organomegaly Extremities: No cyanosis,clubbing or edema. Skin: Warm and Dry. Neurological: Speech is clear, alert, and oriented x 4, no gross neurological deficits Coagulation Studies Laboratory Tests Test 06/04/25 05:50 06/05/25 06:33 Activated Partial Thromboplast Time 37 SECONDS (22-32) H Prothrombin Time 10.9 SECONDS (9.0-12.0) INR International Normalized Ratio 1.1 INR Coagulation Comments Plan Plan 85 years old female with history of diabetes, rheumatoid arthritis, suspected coronary artery disease who transferred from [facility] due to sepsis with infection of defibrillator site MRSA sepsis Source of sepsis is implantable cardioverter-defibrillator pocket [place] [address] Farias, defibrillator site is exposed, unknown duration [facility] reported patient presented with leukocytosis hypotension tachycardia Dr. Melendez was consulted to remove the device, who reported he can not do extraction until June [address] surgeon is back on site. Plan Patient needs to be continue on vancomycin, she lives up in [place], so she can not discharge home with IV vancomycin, due to limited access in the area, another option would be transferred to [facility] or any other tertiary center. Uncontrolled diabetes mellitus: Managed by hospitalist Rheumatoid arthritis: Patient is on leflunomide, although patient is immunocompromised, due to prolonged half-life of medication, no benefit to stop it at this time Pankaj Carney MD Infectious diseases consult Patient seen and examined with Dr. Carney. Agree with above. Waiting for blood cultures to clear. Needs device extracted. Transfer out or wait for Dr. Melendez. Date of Service: Jun 05, 2025 Billing Provider: SAMMI CARVALHO MD, ELAHE, RES Jun 05, 2025 18:30 SAMMI CARVALHO MD Jun 05, 2025 21:39
[2025-06-06] VITALS (9 sets, daily range): BP systolic 110–150; BP diastolic 59–78; PULSE 78–92; RESP 15–27; TEMP 97.6–100.8; O2SAT 94–98
[2025-06-06] MEDS: VANCOmycin 1250MG/NS 250ml Bag 250 ML IV ONE (01:24)
[2025-06-06] MEDS: VANCOmycin 1250MG/NS 250ml Bag 250 ML IV SCH (01:27)
[2025-06-06] MEDS: oxyCODONE IR 5mg (immed. release) tablet PO PRN (02:46)
[2025-06-06 06:11] LABS: MEAN PLATELET VOLUME 7.8 FL (7.4-10.4); RED CELL DISTRIBUTION WIDTH 13.3 % (11.5-14.5)
[2025-06-06 06:20] LABS: INR 1.1 INR
[2025-06-06 06:29] LABS: CREATININE 0.51 MG/DL (0.40-0.90); PHOSPHORUS 2.2 MG/DL (2.3-4.5); TOTAL CARBON DIOXIDE 28.8 MMOL/L (24-32); eCRCL 75 ML/MIN; eGFR > 90 ML/MIN
[2025-06-06 07:55] LABS: EOSINOPHILS % (MANUAL) 2.0 % (0-6); LYMPHOCYTES % (MANUAL) 9.0 % (21-51)
[2025-06-06 07:56] LABS: MONOCYTES % (MANUAL) 15.0 % (2-12); NEUTROPHILS % (MANUAL) 74.0 % (42-75); PLATELET ESTIMATE NORMAL
[2025-06-06] MEDS: lactose-reduced food (Ensure Enlive) - 237ml bottle PO SCH (08:00)
[2025-06-06] MEDS ORDERED: potassium Cl 40MEQ/1/2NS 520ml 520 ML IV PRN (10:35)
[2025-06-06] MEDS ORDERED: magnesium sulf-water 2g/50mL 50 ML IV PRN (10:35)
[2025-06-06] MEDS ORDERED: magnesium sulf-water 4G/100mL 100 ML IV PRN (10:35)
[2025-06-06] MEDS ORDERED: potassium Cl 20 mEq SR tablet PO PRN (10:35)
[2025-06-06] MEDS: potassium Cl 20 mEq SR tablet PO PRN (10:42)
--- NOTE | 2025-06-06 13:52 | PROGRESS NOTE ---
Daily Progress Note Providers to CC ~ Antibiotic Timeout Antibiotic Ordered?: Yes Subjective Chief complaint none Objective Vital Signs Date Time Temp Pulse Resp B/P (MAP) Pulse Ox O2 Delivery O2 Flow Rate FiO2 06/06/25 06:00 88 06/06/25 02:53 97 Room Air* 0 21 06/06/25 02:46 18 06/06/25 02:00 98.5 146/78 (100) Result Diagram: 06/06/25 0513 06/06/25 05 Patient is alert and oriented x3 no acute distress patient is very hard of hearing especially right more than left CVS first and second heart sounds are regular rate rhythm no murmurs gallops or rubs bandaging over left chest wall which I did not remove Respiratory system is clear to auscultate bilaterally Abdomen is soft bowel sounds are positive nontender nondistended no hepatosplenomegaly Extremities no clubbing cyanosis or edema Coagulation Studies Laboratory Tests Test 06/04/25 05:50 06/06/25 05:13 Activated Partial Thromboplast Time 37 SECONDS (22-32) H Prothrombin Time 10.9 SECONDS (9.0-12.0) INR International Normalized Ratio 1.1 INR Coagulation Comments Problem\Assessment\Plan This is an 85-year-old female who was transferred from [facility] with drainage from her AICD site and subsequently has positive MRSA blood cultures the patient has a exposed AICD wire. The patient was evaluated by Dr. Day multiple punch press operator today who is planning a lead extraction with the assistance of Dr. Reynoso Cardiothoracic surgeon however we will be taking the patient to the OR on June 21 and did recommend that the patient could be discharge in the interim on vancomycin with home health and come back for the procedure on June 21 # septic shock/sepsis Continue IV vancomycin 06/03 Dr. Jose velasquez evaluated the patient and discontinue Zosyn, Dr. Day multiple punch press operator has been consulted and will evaluate the patient for lead extraction 06/04 The patient was evaluated by Dr. Day multiple punch press operator today who is planning a lead extraction with the assistance of Dr. Reynoso Cardiothoracic surgeon however we will be taking the patient to the OR on June 21 and did recommend that the patient could be discharge in the interim on vancomycin with home health and come back for the procedure on June 21. Blood cultures grew out MRSA- repeat blood cultures are positive from 06/03/2025. continue to be positive hence PICC line can not be placed yet blood cultures from today are pending. Once we started getting negative blood cultures back we will plan for a PICC line and plan for a discharge to a fdc facility. # type 2 diabetes mellitus and a hyper and hypoglycemic protocol # metabolic acidosis 06/04 resolved DC bicarb drip # hypokalemia On potassium replacement protocol # hyponatremia continue monitor daily CMP # LINCOLN possibly secondary to renal tubular stasis Resolved Daily CMP Currently does not meet the criteria for LINCOLN # DVT prophylaxis SQ heparin I discussed in details with management planner do health patient be discharged to a fdc facility for IV antibiotics till June 21 when patient we will have surgery with Dr. VAUGHN Date of Service: Jun 06, 2025 Billing Provider: KELLY HANLEY MD Common Visit Codes: [id number] INP/OBS CARE(HIGH) KELLY HANLEY MD Jun 06, 2025 13:52
[2025-06-06] MEDS: K and/or MAG REPLACEMENT MC SCH (19:16)
[2025-06-07] VITALS (8 sets, daily range): BP systolic 126–141; BP diastolic 50–62; PULSE 70–87; RESP 16–18; TEMP 97–98.8; O2SAT 93–99
[2025-06-07] MEDS: magnesium Cl slow-release 64mg tablet PO PRN (10:46)
--- NOTE | 2025-06-07 13:29 | PROGRESS NOTE ---
Progress Note Dictate Providers to CC ~ Subjective Subjective: She is resting comfortably. No fever. No plans to remove device until June 21. Objective Objective: GENERAL: She is a very pleasant, elderly female lying comfortably in bed LUNGS: Clear to auscultation bilaterally. HEART: Regular rate and rhythm. CHEST: She does have a small open wound at the left anterior chest and her AICD is easily visualized. She does not have significant surrounding erythema. ABDOMEN: Soft, nontender, and nondistended. EXTREMITIES: No edema. Lab Results: 06/06/25 0513 06/07/25 0618 Lab comments: 06/05 blood cultures positive Problem\Assessment\Plan Additional Plan 1. MRSA sepsis - source appears to be AICD 2. Infected AICD pocket at left anterior chest with exposed device. 3. Diabetes mellitus type 2 that is uncontrolled. 4. Rheumatoid arthritis, possibly on immunosuppressive therapy. Continue vancomycin She is not appropriate for discharge given her persistently positive blood cultures. Would not place PICC until blood stream has been sterilized. Repeat blood cultures Wait for device removal SAMMI CARVALHO MD Jun 07, 2025 13:29
--- NOTE | 2025-06-07 15:10 | PROGRESS NOTE ---
Daily Progress Note Providers to CC ~ Antibiotic Timeout Antibiotic Ordered?: Yes Subjective Chief complaint none patient says she is tired and weak but otherwise okay Review of systems all 10 systems reviewed Objective Vital Signs Date Time Temp Pulse Resp B/P (MAP) Pulse Ox O2 Delivery O2 Flow Rate FiO2 06/07/25 11:00 97.3 87 16 126/58 (80) 97 Room Air 06/06/25 02:53 0 21 Result Diagram: 06/06/25 0513 06/07/25 0618 Patient is alert and oriented x3 no acute distress patient is very hard of hearing especially right more than left CVS first and second heart sounds are regular rate rhythm no murmurs gallops or rubs bandaging over left chest wall which I did not remove Respiratory system is clear to auscultate bilaterally Abdomen is soft bowel sounds are positive nontender nondistended no hepatosplenomegaly Extremities no clubbing cyanosis or edema Coagulation Studies Laboratory Tests Test 06/04/25 05:50 06/06/25 05:13 Activated Partial Thromboplast Time 37 SECONDS (22-32) H Prothrombin Time 10.9 SECONDS (9.0-12.0) INR International Normalized Ratio 1.1 INR Coagulation Comments Problem\Assessment\Plan This is an 85-year-old female who was transferred from [facility] with drainage from her AICD site and subsequently has positive MRSA blood cultures the patient has a exposed AICD wire. The patient was evaluated by Dr. Day custom ski maker today who is planning a lead extraction with the assistance of Dr. Reynoso Cardiothoracic surgeon however we will be taking the patient to the OR on June 21 and did recommend that the patient could be discharge in the interim on vancomycin with home health and come back for the procedure on June 21 # septic shock/sepsis Continue IV vancomycin 06/03 Dr. Jose velasquez evaluated the patient and discontinue Zosyn, Dr. Day custom ski maker has been consulted and will evaluate the patient for lead extraction 06/04 The patient was evaluated by Dr. Day custom ski maker today who is planning a lead extraction with the assistance of Dr. Reynoso Cardiothoracic surgeon however we will be taking the patient to the OR on June 21 and did recommend that the patient could be discharge in the interim on vancomycin with home health and come back for the procedure on June 21. Blood cultures grew out MRSA- repeat blood cultures are positive from 06/03/2025. continue to be positive hence PICC line can not be placed yet blood cultures from today are pending. Once we started getting negative blood cultures back we will plan for a PICC line and plan for a discharge to a retirement facility. # type 2 diabetes mellitus and a hyper and hypoglycemic protocol # metabolic acidosis 06/04 resolved DC bicarb drip # hypokalemia On potassium replacement protocol # hyponatremia continue monitor daily CMP # [place] possibly secondary to renal tubular stasis Resolved Daily CMP Currently does not meet the criteria for LIN[place]N # DVT prophylaxis SQ heparin I also discussed case details with Dr. Day today I discussed in details with conservation planner do health patient be discharged to a retirement facility for IV antibiotics till June 21 when patient we will have surgery with Dr. Day Date of Service: Jun 07, 2025 Billing Provider: KELLY HANLEY MD Common Visit Codes: [id number] INP/OBS CARE(HIGH) KELLY HANLEY MD Jun 07, 2025 15:10
[2025-06-07 20:07] LABS: MEAN PLATELET VOLUME 7.1 FL (7.4-10.4); RED CELL DISTRIBUTION WIDTH 13.1 % (11.5-14.5)
[2025-06-07 20:30] LABS: CREATININE 0.71 MG/DL (0.40-0.90); TOTAL CARBON DIOXIDE 28.0 MMOL/L (24-32); eCRCL 54 ML/MIN; eGFR 79 ML/MIN
[2025-06-07] MEDS: LidoCAINE 2% Topical Jelly 11mL syringe (UROJET) TOP ONE (22:46)
[2025-06-08 02:00] VITALS: BP 149/59; PULSE 79; RESP 20; TEMP 98.8; O2SAT 95
[2025-06-08 06:00] VITALS: BP 149/58; PULSE 74; RESP 18; TEMP 98.4; O2SAT 95
[2025-06-08 07:03] LABS: MEAN PLATELET VOLUME 6.8 FL (7.4-10.4); RED CELL DISTRIBUTION WIDTH 13.1 % (11.5-14.5)
[2025-06-08 08:29] LABS: CREATININE 0.65 MG/DL (0.40-0.90); TOTAL CARBON DIOXIDE 25.2 MMOL/L (24-32); eCRCL 59 ML/MIN; eGFR 87 ML/MIN
[2025-06-08 11:00] VITALS: BP 127/56; PULSE 80; RESP 12; TEMP 98.7; O2SAT 96
--- NOTE | 2025-06-08 17:57 | DISCHARGE SUMMARY ---
Discharge Summary Providers to CC ~ Discharge Summary Admission Diagnosis: HYPOTENSION Hospital Course DATE OF ADMISSION: 06/02/25 DATE OF DISCHARGE: 06/07/25 Discharge Diagnosis\Comment: mrsa sepsis Consultants: DR. ROSALINA CARVALHO Condition on DC: Stable for transfer Discharge Summary: History of Present Illness This is a 85-year-old know case of diabetes presents to the emergency room as a transfer from [facility] for hypotension,When she came to [facility] his blood pressure was 89/49 and was on levofit drip, which was stopped here and she received 2L of fluid at [facility] ER, patient blood pressure went upto better however his blood pressure is currently on lower side around 90z/40z.Patient went to [facility] for chills and nausea. Patient has very very hard time in hearing i could not take her history further. Total Time Spent on D/C: > 30 Minutes Date of Service: Jun 08, 2025 Billing Provider: KELLY HANLEY MD Common Visit Codes: 99609-BPL/OBS SAME DATE (HIGH), 96435-OOC/OBS DISCH DAY >30min KELLY HANLEY MD Jun 08, 2025 17:57
[2025-06-09] MEDS ORDERED: VANCOMYCIN LEVEL IV ONE (00:30)
[2025-06-20] MEDS ORDERED: POTA-192 PO (17:48)
== END 2025-06-08 15:42 | DRG 314 ==
LOC: ER 18:41 → EDBEDREQSVC 21:03 → ED HOLD 21:55 → EDBEDREQ 22:07 → EDBEDREQTM 22:07 → EDBEDREQSVC 22:07 → PCU 3S 06-02 01:48
PROVIDERS: ADMIT Internal Medicine; ATTEND Family Medicine
PROC: BW251ZZ Computerized Tomography (CT Scan) of Chest, Abdomen and Pelvis using Low Osmolar Contrast (ICD-10-PCS; principal; 2025-06-01)
DX: T82.7XXA Infection and inflammatory reaction due to other cardiac and vascular devices, implants and grafts, initial encounter (principal); A41.02 Sepsis due to Methicillin resistant Staphylococcus aureus; N17.0 Acute kidney failure with tubular necrosis; R65.21 Severe sepsis with septic shock; I50.21 Acute systolic (congestive) heart failure; E87.1 Hypo-osmolality and hyponatremia; S21.102A Unspecified open wound of left front wall of thorax without penetration into thoracic cavity, initial encounter; I11.0 Hypertensive heart disease with heart failure; E86.0 Dehydration; E78.5 Hyperlipidemia, unspecified; E87.6 Hypokalemia; M06.9 Rheumatoid arthritis, unspecified; X58.XXXA Exposure to other specified factors, initial encounter; Y83.8 Other surgical procedures as the cause of abnormal reaction of the patient, or of later complication, without mention of misadventure at the time of the procedure; Y92.89 Other specified places as the place of occurrence of the external cause; Z88.2 Allergy status to sulfonamides; Z79.84 Long term (current) use of oral hypoglycemic drugs; Z79.899 Other long term (current) drug therapy; Z79.82 Long term (current) use of aspirin; Y93.89 Activity, other specified; Y99.8 Other external cause status
CPT/HCPCS: 36415; 71260; 74177; 80048; 80053; 80061; 80202; 80305; 81001; 82570; 82948; 83036; 83605; 83735; 83930; 83935; 84100; 84132; 84133; 84145; 84156; 84300; 84443; 84540; 85007; 85025; 85610; 85730; 87040; 87077; 87081; 87088; 87186; 93005; 93306; 96360; 96361; 97161; 97530; 99291; A4314; A6212; A6258; A6455; G0378; J1644; J1815; J2543; J3373; J3374; J3375; J3490; J7030; J7040; J7050; J7070; J7120; Q9967